=== PATIENT | female | born 1960 | race Two or more races ===

== ENCOUNTER → 2020-01-16 | Emergency (ER) | payer OTHER, MEDICAID ==
[~2020-01-16] VITALS: Ht 162.6 cm; Wt 90.7 kg
[~2020-01-16] MED LIST: EPINEPHrine HCL 1 MG/1 ML AMP IM ONE; ESCI10TA; ESTR2TAB3; FUROSEMIDE 40 MG/4 ML VIAL IV ONE; GEMF600T; LEVO1TAB69; LISI-709; LORA2TAB89; META-167; METF-370; POTASSIUM EFFERVESENT TAB 25 MEQ PO ONE; TRIA25CA; [UNRECOGNIZED DRUG - OTHER]; methylPREDNISolone SOD SUCC 125 MG/2 ML VL IV ONE
[2020-01-16 17:16] LABS: Basophils # (auto) 0.1 10 ^3/uL (0-0.2); Eosinophils # (auto) 0.1 10 ^3/uL (0-0.8); Eosinophils % (auto) 1.5 % (0.0-7.0); Hematocrit 38.2 % (36.0-46.0); Hemoglobin 12.4 g/dL (12.2-16.2); Lymphocytes # (auto) 1.8 10 ^3/uL (0.4-5.4); Lymphocytes % (auto) 32.9 % (10.0-50.0); Mean Corpuscular Hemoglobin 27.5 pg (28.0-32.0); Mean Corpuscular Hgb Conc. 32.5 g/dL (32.0-36.0); Mean Corpuscular Volume 84.4 fL (80.0-100.0); Monocytes # (auto) 0.3 10 ^3/uL (0-1.3); Monocytes % (auto) 5.4 % (0.0-12.0); Neutrophils # (auto) 3.3 10 ^3/uL (1.6-8.6); Neutrophils % (auto) 59.2 % (37.0-80.0); Nucleated Red Blood Cells % 0.1 %; Platelet Count (auto) 112 10^3/uL (140-450); Red Blood Cells 4.52 10^6/uL (4.0-5.20); Red Cell Distribution Width 17.4 % (11.8-14.3); White Blood Cell 5.6 10^3/uL (4.4-10.8)
[2020-01-16 17:23] LABS: Urine Bacteria MOD /hpf (None Seen); Urine Blood Negative /uL (Negative); Urine Specific Gravity 1.023 (1.001-1.035); Urine WBC 2 /hpf (0 - 5)
[2020-01-16 17:33] LABS: Albumin 4.6 g/dL (3.4-5.0); Anion Gap 6 (5-15); Blood Urea Nitrogen 23 mg/dL (7-18); Calcium 9.1 mg/dL (8.5-10.1); Carbon Dioxide 32 mmol/L (21-32); Chloride 96 mmol/L (98-107); Glucose 124 mg/dL (74-106); Potassium 3.2 mmol/L (3.5-5.1); Sodium 134 mmol/L (136-145)
[2020-01-16 17:34] LABS: INR 1.03 (0.9-1.15); Partial Thromboplastin Time 27.1 sec (23.0-31.2)
[2020-01-16 17:36] LABS: Amphetamine Screen, Urine POSITIVE (NEGATIVE); Barbiturate Scree,Urine NEGATIVE (NEGATIVE); Benzodiazephine Screen, Urine NEGATIVE (NEGATIVE); Cannabinoid Screen, Urine NEGATIVE (NEGATIVE); Cocaine Screen, Urine NEGATIVE (NEGATIVE); Opiate Scree,Urine NEGATIVE (NEGATIVE); Phencyclidine Screen, Urine NEGATIVE (NEGATIVE)
[2020-01-16 17:38] LABS: Alanine Aminotransferase 67 U/L (13-56); Alkaline Phosphatase 57 U/L (45-117); Aspartate Aminotransferase 118 U/L (15-37); BUN/Creatinine Ratio 14.6; Bilirubin, Total 0.6 mg/dL (0.2-1.0); GFR African American 43 mL/min; GFR Non-African American 36 mL/min; Total Protein 8.1 g/dL (6.4-8.2)
[2020-01-16 20:17] VITALS: BP 155/100
== END | disposition home or self-care (01) ==
LOC: ER 15:58
DX: T78.3XXA Angioneurotic edema, initial encounter (principal); E03.9 Hypothyroidism, unspecified; N39.0 Urinary tract infection, site not specified; E87.6 Hypokalemia; I10 Essential (primary) hypertension; F17.210 Nicotine dependence, cigarettes, uncomplicated; X58.XXXA Exposure to other specified factors, initial encounter
CPT/HCPCS: 36415; 70450; 71045; 80053; 80307; 81001; 83880; 84443; 84484; 85025; 85610; 85730; 93005; 96372; 96374; 96375; 99285; J0171; J1940; J2930